=== PATIENT | female | born 1940 | race Caucasian/White ===

== ENCOUNTER 2018-05-10 22:12 | Inpatient (IN) | payer MEDICARE, BC ==
[~2018-05-10] VITALS: Ht 160 cm; Wt 59.9 kg
--- NOTE | 2018-05-10 22:25 | NUR ---
PT BIB BY [facility] FROM [facility] EMERGENCY ROOM ON 5150 HOLD FOR DTS. PATIENT IS HERE TO BE MEDICALLY CLEARED. NURSING PUBLIC RELATIONS ANALYST MADE AWARE FOR SITTER. SECURITY GAURD AT BEDSIDE FOR 1:1 SAFETY. SAFETY PRECAUTIONS IMPLEMENTED. ALL BELONGINGS AT NURSING STATION. WILL CONTINUE TO MONITOR CLOSELY.
[2018-05-10] MEDS ORDERED: TRAZ-182 PO (22:44)
[2018-05-10] MEDS ORDERED: MIRT45TA83 PO (22:44)
[2018-05-10] MEDS ORDERED: LEVO50TA8 PO (22:44)
[2018-05-10] MEDS ORDERED: GABA600T12 PO (22:44)
[2018-05-10] MEDS ORDERED: LORA0.5T PO (22:44)
[2018-05-10 23:13] LABS: BASOPHILS % (AUTO) 0.5 % (0.0-2.0); EOSINOPHILS # (AUTO) 0.1 K/uL (0.0-0.7); EOSINOPHILS % (AUTO) 1.6 % (0.0-7.0); HEMATOCRIT 38.1 % (31.2-41.9); HEMOGLOBIN 13.2 g/dL (10.9-14.3); LYMPHOCYTES # (AUTO) 2.2 K/uL (20.0-40.0); LYMPHOCYTES % (AUTO) 28.5 % (20.5-51.5); MEAN CORPUSCULAR HEMOGLOBIN 29.9 uug (24.7-32.8); MEAN CORPUSCULAR HGB CONC 35 g/dL (32.3-35.6); MEAN CORPUSCULAR VOLUME 86.3 fL (75.5-95.3); MONOCYTES # (AUTO) 0.7 K/uL (2.0-10.0); MONOCYTES % (AUTO) 9.7 % (0.0-11.0); NEUTROPHILS # (AUTO) 4.6 K/uL (1.8-8.9); NEUTROPHILS % (AUTO) 59.7 % (38.5-71.5); PLATELET COUNT (AUTO) 272 K/uL (179-408); RED BLOOD CELL COUNT(AUTO) 4.41 MIL/uL (3.63-4.92); WHITE BLOOD COUNT (AUTO) 7.6 K/uL (3.8-11.8)
[2018-05-10 23:29] LABS: THYROID STIMULATING HORMONE 1.775 mIU/mL (0.358-3.740)
[2018-05-10 23:31] LABS: ETHANOL < 3 MG/DL (0-0)
[2018-05-10 23:32] LABS: CARBON DIOXIDE 26 mmol/L (21-32); CHLORIDE 101 mmol/L (98-107); CREATININE 0.8 mg/dL (0.6-1.3); GLUCOSE 125 mg/dL (74-106); POTASSIUM 3.6 mmol/L (3.5-5.1); UREA NITROGEN, BLOOD 18 mg/dL (7-18)
[2018-05-10 23:39] LABS: ALANINE AMINOTRANSFERASE 22 U/L (14-59); ALKALINE PHOSPHATASE 86 U/L (50-136); ASPARTATE AMINOTRANSFERASE 12 U/L (15-37); BILIRUBIN,DIRECT 0.1 mg/dL (0.0-0.2); BILIRUBIN,TOTAL 0.2 mg/dL (0.2-1.0)
[2018-05-10 23:43] LABS: *BILIRUBIN,URIN NEGATIVE (NEGATIVE); *BLOOD, URINE NEGATIVE (NEGATIVE); *COLOR,URINE YELLOW (YELLOW); *KETONES,URINE TRACE (NEGATIVE); *UROBILINOGEN,URINE 0.2 E.U./dl (NORMAL); LEUKOCYTE ESTERASE ,URINE 2+ (NEGATIVE); NITRITE, URINE NEGATIVE (NEGATIVE); UGLUCOSE NEGATIVE (NEGATIVE)
[2018-05-10 23:46] LABS: *CLARITY,URINE HAZY (CLEAR)
[2018-05-10 23:50] LABS: ACETAMINOPHEN < 2.0 ug/mL (10-30)
[2018-05-10 23:55] LABS: BACTERIA,URINE FEW /HPF (NONE SEEN); SQUAMOUS EPITHELIAL CELL,UR MODERATE /HPF (NONE SEEN)
[2018-05-10 23:59] LABS: *AMPHETAMINE, URINE NEGATIVE (NEGATIVE); *BARBITURATE, URINE NEGATIVE (NEGATIVE); *CANNABINOID, URINE NEGATIVE (NEGATIVE); *COCCAINE, URINE NEGATIVE (NEGATIVE); *OPIATE, URINE NEGATIVE (NEGATIVE); *PHENCYCLIDINE SCREEN,URINE NEGATIVE (NEGATIVE)
[2018-05-11] MEDS ORDERED: CEphaleXIN 250 MG CAPSULE PO STA (00:02)
[2018-05-11] MEDS ORDERED: CEphaleXIN 250 MG CAPSULE ONE (00:03)
--- NOTE | 2018-05-11 00:06 | NUR ---
Pt. admitted to MHU , under care of Dr. Morris/Richard Allen DNP Belongs List completed
[2018-05-11 00:19] VITALS: BP 103/62
[2018-05-11] MEDS ORDERED: TEMAZEPAM 7.5 MG CAPSULE PO PRN (00:30)
[2018-05-11] MEDS ORDERED: MAG HYDROX/AL HYDROX/SIMETH 30 ML LIQUID UDC PO PRN (00:30)
[2018-05-11] MEDS ORDERED: MAGNESIUM HYDROXIDE 30 ML LIQUID UDC PO PRN (00:30)
--- NOTE | 2018-05-11 01:30 | NUR ---
AT APPROX 0015 ADMITTED 78 YEARS OLD FEMALE TO [facility] MHU ON A 5150 FOR DTS. ACCORDING TO HER HOLD, PATIENT LIVES WITH HER DAUGHTER. 3 DAYS AGO, SHE BROKE A GLASS AND USED THE SHARP EDGES AND ATTEMPTED TO KILL HERSELF BY CUTTING HER LEFT SIDE OF HER NECK LEAVING A SUPERFICIAL LACERATION. DAUGHTER CALLED 911, PATIENT WAS TAKEN TO [facility] ER WHERE SHE RECEIVED MEDICAL TREATMENT, WAS PUT ON HOLD AND WAS MEDICALLY CLEARED FOR ADMISSION TO A PSYCH UNIT. PATIENT WAS TRANSPORTED TO [facility] ER WHERE SHE WAS, ONCE AGAIN, MEDICALLY CLEARED FOR ADMISSION TO MHU.HOLD WILL END ON 05/11/18 AT 1245. FACE TO FACE ASSESSMENT WAS DONE. PATIENT NOTED A/O X 3 ABLE TO AMBULATE WITH STEADY GAIT WITH THE AID OF A FWW. SHE IS NOTED CALM AND COOPERATIVE UPON APPROACHED. V/S STABLE AT THIS TIME. DENIES PAIN. SHE IS NOTED WITH LOW MOOD, BLUNTED AFFECT. UPON INTERVIEW, SHE STATED THAT SHE FEELS SUICIDAL D/T CHRONIC GENERALIZED PAIN. SHE DESCRIBES HER PAIN A BURNING SENSATION THAT TRIGGERS HER ANXIETY AND THOUGHTS TO HARM SELF AND KILL HERSELF. PATIENT ADDED THAT SHE ONLY FEELS SUICIDAL WHEN HER PAIN GETS INTENSE. SHE ALSO REMEMBERED BEEN IN THIS HOSPITAL BACK IN 11/2010. PATIENT REMEMBERS ONE PRIOR ATTEMPT TO KILL SELF IN THE SAME WAY ABOUT ONE YEAR AGO, SHE STATED THAT SHE WENT TO [facility] AT THAT TIME. PATIENT IS ABLE TO CFS. HOWEVER, SHE STATED THAT IF THE PAIN GETS "REALLY BAD" THEN SHE WILL START HAVING THOUGHT TO KILL HERSELF. PATIENT WAS REASSURED FOR HER SAFETY. PATIENT WAS CHECKED FOR CONTRABAND. HEAD TO TOE SKIN ASSESSMENT WAS DONE, A SUPERFICIAL LACERATION OF APPROX 4CM WAS NOTED ON LEFT SIDE OF NECK. NO S/S OF INFECTION WAS NOTED AT THIS TIME. IT WAS ALSO NOTED THAT HER LEFT THUMB, 3/4 OF HER NAIL IS MISSING. PATIENT STATED THAT SHE "PICK AND BITE" THAT NAIL. A SHOWER WAS GIVEN WELL. PATIENT IS UNDER THE CARE OF DR BOLES AND MATT TREVIÑO NP. DR BOLES WAS NOTIFY OF ADMISSION. WILL CONTINUE TO MONITOR CLOSELY.
[2018-05-11 07:30] VITALS: BP 104/44
[2018-05-11] MEDS ORDERED: LEVOTHYROXINE SODIUM 50 MCG TABLET PO ONE (10:30)
[2018-05-11 16:00] VITALS: BP 121/63
--- NOTE | 2018-05-11 16:27 | NUR ---
GROUP NOTE: Patients were asked to attend group to draw pictures of their favorite animals and describe how that animal may represent who they are. S: "I can't sit down, so no thank you." O: Patient did not attend group A: Patient presented walking in the hallway with FWW when group began. Patient appeared pleasant, and declined to attend group. P: SW will continue to encourage group participation as scheduled.
[2018-05-11] MEDS: MIRTAZAPINE 15 MG TABLET PO SCH ×2 (16:48→18:00)
[2018-05-11] MEDS: TRAZODONE 100 MG TABLET PO SCH ×2 (16:48→18:00)
--- NOTE | 2018-05-11 18:18 | NUR ---
Trazodone 100 mg and Remeron 45 mg given early at 1648 as first dose order.
[2018-05-11] MEDS: LORAZEPAM 0.5 MG TABLET PO PRN (19:44)
--- NOTE | 2018-05-11 19:45 | NUR ---
RECEIVED PATIENT IN THE HALLWAY. SHE IS NOTED A/O X 3, SHE IS ABLE TO AMBULATE WITH STEADY GAIT WITH THE AID OF A FWW AND SHE IS ABLE TO MAKE HER NEEDS KNOWN. SHE IS NOTED WITH LOW/DEPRESSED AND ANXIOUS MOOD, BLUNTED AFFECT, LABILE BX. SHE CONTINUE PREOCCUPIED ABOUT HER "PAINS". SHE CONTINUE HAVING PASSIVE SI. SHE STATED TO THIS BAND TEACHER, "MY DAUGHTER DOES NOT WANT ME. SHE TOLD ME THAT SHE DOES NOT WANT TO HAVE ANYTHING TO DO WITH ME." PATIENT WAS REASSURED AND REDIRECTED. SHE WAS OFFERED AN ATIVAN FOR HER ANXIETY, SHE AGREED. ATIVAN 0.5M PO PRN WAS GIVEN. SHE WAS REASSURED FOR HER SAFETY. PT WAS ABLE TO CONTRACT FOR HER SAFETY. SHE WAS ENCOURAGE TO CONTINUE VERBALIZING FEELINGS AND EXPRESS THOUGHT AND FEELINGS TO PSYCH MD AND NURSING STAFF. WILL CONTINUE TO MONITOR CLOSELY.
[2018-05-11 20:00] VITALS: BP 136/64
--- NOTE | 2018-05-11 21:15 | NUR ---
PATIENT APPROACHED THE NURSING STATION. SHE STATED SHE WOULD LIKE TO GO TO SLEEP EARLY AND WOULD LIKE A "SLEEPING PILL". PATIENT WAS GIVEN TEMAZEPAM 7.5MG PO PRN FOR SLEEP AID. WILL CONTINUE TO MONITOR CLOSELY.
[2018-05-11] MEDS: CEphaleXIN 500 MG CAPSULE PO SCH (23:16)
[2018-05-12] MEDS: LEVOTHYROXINE SODIUM 50 MCG TABLET PO SCH (06:29)
[2018-05-12] MEDS: CEphaleXIN 500 MG CAPSULE PO SCH ×3 (06:29→21:00)
[2018-05-12 07:30] VITALS: BP 110/47
[2018-05-12] MEDS ORDERED: TEMAZEPAM 7.5 MG CAPSULE PO PRN (14:00)
--- NOTE | 2018-05-12 15:42 | NUR ---
Gps/Hand Sample Maker- Ambulating around with front wheel walker, safety reviewed emphasized, flat affect, encouraged verbalizations of her feelings and needs. Denies S.I., adequate fluid intake, denies burning in urination . Encouraged to attend group therapy.
[2018-05-12 16:00] VITALS: BP 122/53
--- NOTE | 2018-05-12 16:07 | NUR ---
Initial Discharge Instructions: Per patient, she resided in her daughter, Juliette home for one day before attempting suicide and being brought to [facility] [[place], [place]]. Per pt., she does not want to return there and would like to be placed in a board and care. IVIS Gaffney will speak with pt's daughter, Ruth ([phone]) to discuss discharge planning. IVIS Gaffney will also speak with pt's other daughter, Abby ([phone]). IVIS Gafnfey and other social workers will collaborate with DPOA and interdisciplinary team to ensure safe and proper discharge planning.
[2018-05-12] MEDS: TRAZODONE 100 MG TABLET PO SCH (16:23)
[2018-05-12] MEDS: MIRTAZAPINE 15 MG TABLET PO SCH (16:24)
--- NOTE | 2018-05-12 17:04 | NUR ---
Gps/Lisette- Jenna Bautista NURSING SPECIALIST in to see patient, informed patient had been asking for gabapentin 600 mg q pm, claimed patient had been off gabapentin/dc'd.
[2018-05-12 20:37] VITALS: BP 115/51
[2018-05-12] MEDS: TEMAZEPAM 15 MG CAPSULE PO PRN (21:03)
--- NOTE | 2018-05-12 22:30 | NUR ---
Received pt resting in bed. AAO x3. No acute distress noted. No c/o pain or discomfort. Denies S/I, hallucination, and delusion. All due meds given as ordered. Safety measures maintained. Will continue to monitor.
[2018-05-13] MEDS: LEVOTHYROXINE SODIUM 50 MCG TABLET PO SCH (06:16)
[2018-05-13] MEDS: CEphaleXIN 500 MG CAPSULE PO SCH ×3 (06:16→21:51)
[2018-05-13 07:30] VITALS: BP 94/44
--- NOTE | 2018-05-13 16:07 | NUR ---
Discharge Planning: IVIS Moses has not heard back from DPOA�s , Vijay Gomez [[phone]] (DPOA is out of the country, and patient�s other daughter asked IVIS moses to call DPOA daughter�s ). IVIS Moses left another voicemail for DPOA�s on 05/13/1028 in an attempt to have him fax over the DPOA paperwork as DPOA is currently out of the country. IVIS Moses will continue to get it contact with the DPOA�s .
--- NOTE | 2018-05-13 16:09 | NUR ---
Discharge Planning: IVIS Gaffney spoke with pt.�s daughter, Abby [[phone]] on 05/13/2018. Abby expressed that she felt she needed additional support to help her to better cope with the pt.�s mental health and wellness. IVIS Gaffney provided Abby with the information to the [facility] [place] [facility] [[address] [place] [address] ([phone]) which has a family support group. Abby stated that she feels she would benefit from the program and will reach out to them.
[2018-05-13 16:50] VITALS: BP 135/61
[2018-05-13] MEDS: TRAZODONE 100 MG TABLET PO SCH (16:53)
[2018-05-13] MEDS: MIRTAZAPINE 15 MG TABLET PO SCH (16:54)
[2018-05-13] MEDS: GABAPENTIN 300 MG CAPSULE PO SCH (18:49)
[2018-05-13 19:41] VITALS: BP 121/46
[2018-05-13] MEDS: LORAZEPAM 0.5 MG TABLET PO PRN (20:00)
[2018-05-13] MEDS: TEMAZEPAM 15 MG CAPSULE PO PRN (21:51)
[2018-05-14] MEDS: CEphaleXIN 500 MG CAPSULE PO SCH ×3 (06:23→21:02)
[2018-05-14] MEDS: LEVOTHYROXINE SODIUM 50 MCG TABLET PO SCH (06:23)
[2018-05-14 07:30] VITALS: BP 124/48
[2018-05-14] MEDS: GABAPENTIN 300 MG CAPSULE PO SCH ×2 (08:55→16:35)
[2018-05-14 16:06] VITALS: BP 131/43
[2018-05-14] MEDS: TRAZODONE 100 MG TABLET PO SCH (16:35)
[2018-05-14] MEDS: MIRTAZAPINE 15 MG TABLET PO SCH (16:35)
[2018-05-14 20:35] VITALS: BP 117/60
[2018-05-14] MEDS: TEMAZEPAM 15 MG CAPSULE PO PRN (21:02)
[2018-05-15] MEDS: CEphaleXIN 500 MG CAPSULE PO SCH ×3 (06:20→21:16)
[2018-05-15] MEDS: LEVOTHYROXINE SODIUM 50 MCG TABLET PO SCH (06:20)
[2018-05-15] MEDS: GABAPENTIN 300 MG CAPSULE PO SCH ×2 (08:04→16:06)
[2018-05-15 08:28] VITALS: BP 124/57
[2018-05-15] MEDS: MIRTAZAPINE 15 MG TABLET PO SCH (16:06)
[2018-05-15] MEDS: TRAZODONE 100 MG TABLET PO SCH (16:06)
[2018-05-15 17:25] VITALS: BP 134/66
--- NOTE | 2018-05-15 19:45 | NUR ---
RECEIVED PATIENT IN THE DAY ROOM WATCHING TV. SHE IS NOTED A/O X 3 ABLE TO AMBULATE WITH STEADY GAIT WITH THE AID OF A FWW. SHE IS NOTED WITH LOW MOOD, BLUNTED AFFECT, NEEDY, ATTENTION SEEKER. UPON INTERVIEW, SHE STATED, "I FEEL DEPRESSED, I FEEL MY HEAD IS BURNING". HOWEVER, SHE DENIES ANY THOUGHT OR PLAN TO HARM SELF AT THIS TIME. PATIENT WAS REASSURED, SAFETY WAS EMPHASIS. PATIENT ABLE TO CFS. WILL CONTINUE TO MONITOR.
[2018-05-15 20:00] VITALS: BP 116/41
[2018-05-15] MEDS ORDERED: CEphaleXIN 500 MG CAPSULE ONE (20:33)
[2018-05-15] MEDS: TEMAZEPAM 15 MG CAPSULE PO PRN (21:16)
[2018-05-16] MEDS: CEphaleXIN 500 MG CAPSULE PO SCH ×2 (06:03→13:53)
[2018-05-16] MEDS: LEVOTHYROXINE SODIUM 50 MCG TABLET PO SCH (06:03)
--- NOTE | 2018-05-16 06:52 | NUR ---
PATIENT SLEPT FOR APPROX 5.00 HRS THROUGH THE NIGHT. CONTINUE NEEDY, AND DEMANDING. WILL CONTINUE TO MONITOR.
[2018-05-16 08:30] VITALS: BP 122/53
[2018-05-16] MEDS: GABAPENTIN 300 MG CAPSULE PO SCH ×2 (08:44→16:35)
[2018-05-16 15:23] VITALS: BP 123/51
--- NOTE | 2018-05-16 15:30 | NUR ---
Discharge Planning Note: IVIS Quality Process Lead spoke with pt.�s daughter Abby . Abby expressed that pt.�s DPOA, Ruth is back in town and Abby will have Ruth contact IVIS Quality Process Lead. IVIS Quality Process Lead was able to reach Ruth and offered the option of having pt. go to a SNF while Abby and Ruth solidify an assisted living facility qualified to care for pt.�s specific needs. Ruth stated that she believes this is a good plan and is on board with this decision. Ruth stated that the pt. has adverse reactions to certain medication and is concerned about her current care. IVIS Gaffney informed attending psychiatrist Dr. Morris about Star concerns regarding patient�s medications, and asked him if he could call Ruth to further discuss her concerns.
[2018-05-16] MEDS: MIRTAZAPINE 15 MG TABLET PO SCH (16:34)
[2018-05-16] MEDS: ACETAMINOPHEN 325 MG TABLET PO PRN (16:35)
[2018-05-16] MEDS: TRAZODONE 100 MG TABLET PO SCH (16:35)
[2018-05-16 20:04] VITALS: BP 118/51
[2018-05-16] MEDS: TEMAZEPAM 15 MG CAPSULE PO PRN (21:17)
[2018-05-17] MEDS: LEVOTHYROXINE SODIUM 50 MCG TABLET PO SCH (06:13)
[2018-05-17] MEDS: ACETAMINOPHEN 325 MG TABLET PO PRN (08:47)
[2018-05-17] MEDS: GABAPENTIN 300 MG CAPSULE PO SCH ×2 (08:47→16:34)
--- NOTE | 2018-05-17 16:03 | NUR ---
DC Plannin: SW spoke with pt's daughter, Ruth ([phone]) to discuss discharge planning. Per Ruth, she and her sister, Abby would like to take the patient to [facility] ER, as patient is complaining of pain, and they would like her to be checked out at that hospital. IVIS told Ruth that a message would be left for the Bedspring Assembler, Kane Lay, CONSTRUCTION REP to contact them to discuss issues of pain management. Ruth was agreeable to this. 1300: Received call from pt's daughter, Abby ([phone]) who states she would like to take patient to [facility] ER. IVIS consulted with Dr. Morris about this, and Dr. Morris agreed to allow pt to be discharged to daughter's care if DPOA is agreeable tomorrow (05/18/18). 1315: SW placed call to Ruth, and informed her of this. Ruth was agreeable to pt discharging to Abby's care and reported she would call this magazine writer back with the time Abby was to roller picker the patient. 1450: Received call from Ruth stating that Abby is not comfortable picking up the patient. SW placed call to Abby, and she confirmed this. SW allowed opportunity for daughter to express concerns and ventilate feelings. SW informed Abby that plan is SNF placement for the patient, and daughter expressed that she was relieved. IVIS informed Dr. Morris that daughters will not be picking up the patient tomorrow and instead would like SW to find SNF placement for the patient. SW will continue to follow-up and begin sending referrals to SNFs.
[2018-05-17 16:23] VITALS: BP 142/85
[2018-05-17] MEDS: TRAZODONE 100 MG TABLET PO SCH (16:33)
[2018-05-17] MEDS: MIRTAZAPINE 15 MG TABLET PO SCH (16:34)
--- NOTE | 2018-05-17 19:50 | NUR ---
RECEIVED PATIENT IN HER ROOM IN BED. SHE IS NOTED AWAKE A/O X 3. SHE IS ABLE TO AMBULATE WITH STEADY GAIT. SHE CONTINUE NEEDY, ATTENTION SEEKER. LOW MOOD, WITHDRAWN, BLUNTED AFFECT. HOWEVER, SHE DENIES THOUGHTS TO HARM SELF, SHE STATED, "I DON'T WANT TO HARM MYSELF ANYMORE AND I DON'T HAVE ANY BURNING PAINS". PT DENIES SI/HI/VH/AV. SHE DENIES PAIN AT THIS TIME. SHE IS ABLE TO CONTRACT FOR HER SAFETY. V/S STABLE. PATIENT WAS REASSURED FOR HER SAFETY. BED AT LOWEST POSITION WITH WHEELS LOCKED, SIDE RAILS UP X 2, AND FREQUENT HEAD COUNTS. WILL CONTINUE TO MONITOR.
[2018-05-17 20:14] VITALS: BP 120/65
[2018-05-17] MEDS: TEMAZEPAM 15 MG CAPSULE PO PRN (21:04)
[2018-05-18] MEDS: LEVOTHYROXINE SODIUM 50 MCG TABLET PO SCH (06:49)
[2018-05-18] MEDS: GABAPENTIN 300 MG CAPSULE PO SCH ×2 (09:00→16:36)
[2018-05-18 10:00] VITALS: BP 115/47
[2018-05-18 16:00] VITALS: BP 122/57
[2018-05-18] MEDS: TRAZODONE 100 MG TABLET PO SCH (16:36)
[2018-05-18] MEDS: MIRTAZAPINE 15 MG TABLET PO SCH (16:37)
--- NOTE | 2018-05-18 17:04 | NUR ---
Process Group Note: Patients were asked to answer the question of "What is one thing you would change about yourself and why? Subjective: "..." Objective: Patient was asleep in bed and unable to be woken up to attend group. Assessment: Patient will need encouragement to attend group more often. Plan: Encourage group attendance as scheduled. structural layout worker will continue to ask patient to attend group.
[2018-05-18 20:00] VITALS: BP 92/59
[2018-05-18 21:23] VITALS: BP 111/62
[2018-05-18] MEDS: TEMAZEPAM 15 MG CAPSULE PO PRN (22:22)
[2018-05-19] MEDS: LORAZEPAM 0.5 MG TABLET PO PRN ×2 (00:15→23:09)
[2018-05-19] MEDS: LEVOTHYROXINE SODIUM 50 MCG TABLET PO SCH (06:50)
[2018-05-19 07:30] VITALS: BP 122/49
[2018-05-19] MEDS: GABAPENTIN 300 MG CAPSULE PO SCH ×2 (08:16→16:44)
--- NOTE | 2018-05-19 12:51 | NUR ---
Blasting Entry Specialist DC Planning: SW has faxed to the following facilities for SNF placement for the patient: [facility]: - Awaiting response [facility]: - July from the facility will come assess the [facility]: - Patient denied [facility]: - Awaiting response [facility]: - Awaiting response [facility]: - Awaiting response IVIS will continue to follow-up with the facilities on patient's acceptance.
[2018-05-19 16:00] VITALS: BP 108/54
[2018-05-19] MEDS: MIRTAZAPINE 15 MG TABLET PO SCH (16:11)
[2018-05-19] MEDS: TRAZODONE 100 MG TABLET PO SCH (16:11)
--- NOTE | 2018-05-19 18:18 | NUR ---
NURSING: RECEIVED PATIENT ON BED, ALERT ORIENTED, ON LOW BED POSITION, PATIENT COMPLIANT TO MEDICATION , DENIES SUICIDAL IDEATION AND HOMICIDAL IDEATION AT THIS TIME, SEEN HAVING GOOD CONVERSATION WITH ROOMMATES, PATIENTS BEEN AMBULATING WITH HER WALKER WITH NON SKID SOCKS IN THE HALLWAY, KEPT COMFORTABLE ALL NEEDS MET, DENIES ANY PAIN AND DISCOMFORT
--- NOTE | 2018-05-19 20:00 | NUR ---
RECEIVED PATIENT IN THE DAY ROOM WATCHING TV WITH ANOTHER PEER. SHE IS NOTED A/O X 3. CALM AND PLEASANT UPON APPROACHED. SHE IS NOTED LESS DEPRESSED LESS NEEDY. FAIR INSIGHT NOTED INTO THE REASON FOR HIS ADMISSION TO MHU. SHE DENIES SI OR ANY THOUGHT TO HARM SELF, DENIES PAIN OR DISCOMFORT AT THIS TIME. SHE IS ABLE TO CFS. LEFT SIDE NECK SUPERFICIAL LACERATIONS ASSESSMENT DONE AND PICTURE WAS TAKEN: NOTED HEALING WELL. NO S/S OF INFECTION NOTED, PATIENT DENIES PAIN. PATIENT WAS REASSURED FOR HER SAFETY. WILL CONTINUE TO MONITOR CLOSELY.
[2018-05-19] MEDS: TEMAZEPAM 15 MG CAPSULE PO PRN (21:09)
--- NOTE | 2018-05-19 21:10 | NUR ---
PATIENT REQUESTED A "SLEEPING PILL" STATING, "I CAN'T SLEEP. I AM AFRAID I WILL NOT BE ABLE TO SLEEP TONIGHT. NOTHING WORKS FOR ME." PATIENT SLEPT FOR APPROX 3.00HRS LAST NIGHT. TEMAZEPAM 15MG PO PRN WAS GIVEN FOR INSOMNIA. WILL CONTINUE TO MONITOR.
[2018-05-19 22:02] VITALS: BP 110/56
--- NOTE | 2018-05-19 23:05 | NUR ---
DURING PATIENT'S ROUNDS, SHE C/O NOT BEEN ABLE TO FALL ASLEEP. SHE WAS NOTED ANXIOUS. ATIVAN 0.5 MG PO PRN WAS GIVEN. WILL CONTINUE TO MONITOR CLOSELY.
--- NOTE | 2018-05-20 00:01 | NUR ---
RECEIVED PATIENT IN THE DAY ROOM WATCHING TV WITH ANOTHER PEER. SHE IS NOTED A/O X 3. CALM AND PLEASANT UPON APPROACHED. SHE IS NOTED LESS DEPRESSED LESS NEEDY. FAIR INSIGHT NOTED INTO THE REASON FOR HIS ADMISSION TO MHU. SHE DENIES SI OR ANY THOUGHT TO HARM SELF, DENIES PAIN OR DISCOMFORT AT THIS TIME. SHE IS ABLE TO CFS. LEFT SIDE NECK SUPERFICIAL LACERATIONS ASSESSMENT DONE AND PICTURE WAS TAKEN: NOTED HEALING WELL. NO S/S OF INFECTION NOTED, PATIENT DENIES PAIN. PATIENT WAS REASSURED FOR HER SAFETY. WILL CONTINUE TO MONITOR CLOSELY. Addendum: 05/20/18 at 0057 by PIERCE BOATENG RN DE
[2018-05-20] MEDS: LEVOTHYROXINE SODIUM 50 MCG TABLET PO SCH (07:00)
[2018-05-20 07:30] VITALS: BP 119/51
[2018-05-20] MEDS: GABAPENTIN 300 MG CAPSULE PO SCH ×3 (09:09→16:02)
--- NOTE | 2018-05-20 10:38 | NUR ---
Social Work Discharge Planning Note: Spoke with daughter, Abby [phone] at length yesterday regarding patient's discharge plan. Today speaking with Ruth [phone] and she confirms that pt. has been diagnosed with borderline personality disorder.They have shopped around with multiple pain therapists in [place] and elsewhere. She was in [facility] inpatient psychiatric unit in September 2016 and [facility] a few weeks ago. Patient is wanting to live with her daughters who cannot handle her. They are wanting [facility] inpatient for her. This clinician explained to Ruth that inpatient may not be the answer for her mother. She understands that there is no quick fix for patient. Per Ruth pt. is very dependent on her and many of her gestures are in anger. Patient acts out whenever her daughter (Ruth) sets limits on her. Pt. had ECT 8 years ago at [facility]. Pt. had ECT in [place] in February 2018 which was not effective per Ruth. Pt. "needs a good psychologist" per uRth. Ruth understands that patient is now engaging in cutting behavior as a coping behavior. Patient had a traumatic childhood in foster care and had a schizophrenic mother. Patient's sister has similar issues and does not do well on inpatient units. DPOA, Ruth [phone] they will agree to placement in an assisted living or board and care. Nicole has connected Ruth with Nathanael, placement agent. Advised Ruth that we need to support pt. with therapy in the community. Provided Ruth with Veronica Oneil PhD ) outpatient psychologist, Dr Enrrique Kearns [phone] Nunez [phone]-both psychiatrists specialize in this age group. Supported Ruth at length and explained that her mother needs to want to work with therapists in order to get well. Also advised her that her mother will be discharged from this unit in the near future. We will fax packet to [facility] inpatient unit per family request but Ruth is aware that it is unlikely. Plan: Ruth will call outpatient providers provided by this grant writer and will work with placement agent. Our social media manager will support agency referrals for placement. Ruth is aware she will have to leave our hospital as soon as placement is secured.
--- NOTE | 2018-05-20 13:16 | NUR ---
Discharge Planning: bilingual patient support caseworker received voicemail from Ruth Gomez [[phone]], patient daughter and DPOA, who requests that patient packet be sent to [facility] admissions department. Per Ruth, she spoke with [facility] who stated they have no beds but suggested to have hospital send packet to admissions department in case of bed opening. bilingual patient support caseworker called [facility] admissions [[phone]] and spoke with admissions staff who stated they are not accepting patient packets at this time, but that a face sheet can be sent. bilingual patient support caseworker faxed [[phone]] patient face sheet to admissions as patient daughter requested.
--- NOTE | 2018-05-20 15:49 | NUR ---
Discharge Planning: plastics worker called and spoke with volunteer coordinator, En [[phone]], at [facility] who stated that her colleague, Nathanael, is consulting with family on placement. Per En, Nathanael has referred family to too [facility]. Family to visit over the weekend. plastics worker called and left voicemail for Nathanael [[phone]] inquiring what other facilities family has been referred to. plastics worker awaiting return phone call. plastics worker then called [facility][[address] [place] [address]; ], a facility that patient daughter's would like patient to discharge to. plastics worker called and spoke with Tanya, operations coordinator, at [facility] who states she needs physician's report to be faxed. plastics worker faxed physicians report. plastics worker then received a voicemail from Tanya stating that patient is tentatively accepted pending [id number] assessment. Tanya states she can only do assessment on Wednesday of next week. plastics worker called back Tanya, but received no phone call and a voicemail was left. plastics worker to follow-up with Tanya at [place] on Wednesday.
[2018-05-20 16:00] VITALS: BP 112/62
[2018-05-20] MEDS: TRAZODONE 100 MG TABLET PO SCH (16:02)
[2018-05-20] MEDS: MIRTAZAPINE 15 MG TABLET PO SCH (16:02)
[2018-05-20] MEDS: TEMAZEPAM 15 MG CAPSULE PO PRN (21:03)
[2018-05-20 21:09] VITALS: BP 117/59
[2018-05-21] MEDS: LORAZEPAM 0.5 MG TABLET PO PRN ×2 (00:15→23:09)
[2018-05-21] MEDS: ACETAMINOPHEN 325 MG TABLET PO PRN (00:15)
[2018-05-21] MEDS: LEVOTHYROXINE SODIUM 50 MCG TABLET PO SCH (06:27)
[2018-05-21 07:30] VITALS: BP 115/90
[2018-05-21] MEDS: GABAPENTIN 300 MG CAPSULE PO SCH ×3 (09:13→16:46)
[2018-05-21 16:00] VITALS: BP 115/58
[2018-05-21] MEDS: TRAZODONE 100 MG TABLET PO SCH (16:45)
[2018-05-21] MEDS: MIRTAZAPINE 15 MG TABLET PO SCH (16:46)
[2018-05-21] MEDS: TEMAZEPAM 15 MG CAPSULE PO PRN (21:17)
[2018-05-21 21:47] VITALS: BP 122/61
[2018-05-22] MEDS: ACETAMINOPHEN 325 MG TABLET PO PRN ×2 (03:06→12:27)
[2018-05-22] MEDS: LEVOTHYROXINE SODIUM 50 MCG TABLET PO SCH (06:16)
[2018-05-22 07:30] VITALS: BP 118/61
[2018-05-22] MEDS: GABAPENTIN 300 MG CAPSULE PO SCH ×3 (09:26→17:43)
[2018-05-22 16:00] VITALS: BP 117/49
[2018-05-22] MEDS: MIRTAZAPINE 15 MG TABLET PO SCH (17:43)
[2018-05-22] MEDS: TRAZODONE 100 MG TABLET PO SCH (17:43)
[2018-05-22 20:00] VITALS: BP 118/56
[2018-05-22] MEDS ORDERED: CYCLOBENZAPRINE HCL 10 MG TABLET PO PRN (22:00)
[2018-05-22] MEDS: TEMAZEPAM 15 MG CAPSULE PO PRN (22:00)
[2018-05-23] MEDS: LORAZEPAM 0.5 MG TABLET PO PRN ×2 (04:20→22:33)
--- NOTE | 2018-05-23 04:23 | NUR ---
patient c/o anxiety. ativan 0.5 mg po given.
--- NOTE | 2018-05-23 05:23 | NUR ---
patient resting in bed comfortably. prn for anxiety effective.
[2018-05-23] MEDS: LEVOTHYROXINE SODIUM 50 MCG TABLET PO SCH (06:30)
--- NOTE | 2018-05-23 06:39 | NUR ---
gps: remain calm and cooperative with medications and care. slept 6:30 hrs through the night. resting in bed comfortably.no anxiety or aggressive behavior noted. denies si at this time.
[2018-05-23 07:30] VITALS: BP 118/53
[2018-05-23] MEDS: GABAPENTIN 300 MG CAPSULE PO SCH ×3 (08:56→16:34)
[2018-05-23] MEDS ORDERED: TUBERCULIN,PURIF.PROT.DERIV. 5 TU/0.1 ML TEST ID ONE (12:00)
[2018-05-23 15:37] VITALS: BP 122/53
[2018-05-23] MEDS: MIRTAZAPINE 15 MG TABLET PO SCH (16:34)
[2018-05-23] MEDS: TRAZODONE 100 MG TABLET PO SCH (16:34)
[2018-05-23 20:37] VITALS: BP 108/60
[2018-05-23] MEDS: TEMAZEPAM 15 MG CAPSULE PO PRN (21:05)
--- NOTE | 2018-05-23 22:35 | NUR ---
Patient c/o anxiety. ativan 0.5 mg po given for agitation.
--- NOTE | 2018-05-23 23:35 | NUR ---
GPS: PATIENT RESTING IN BED COMFORTABLY.PRN EFFECTIVE FOR AGITATION.
[2018-05-24] MEDS: LEVOTHYROXINE SODIUM 50 MCG TABLET PO SCH (06:06)
--- NOTE | 2018-05-24 06:41 | NUR ---
GPS: Remain calm and cooperative with medication and care. ativan 0.5 mg po give x1 and effective for agitation. slept 8:30 hrs through the night. denied si at this time.continue plan of care.
[2018-05-24 07:30] VITALS: BP 138/66
[2018-05-24] MEDS: GABAPENTIN 300 MG CAPSULE PO SCH ×3 (08:13→16:39)
--- NOTE | 2018-05-24 11:56 | NUR ---
Test Cell Technician DC Planning: Vy from [facility] [[address] [place] [address]; ] came to assess the patient today. Post-assessment with the patient, Ruth reported that Admissions (either Tanya or Ej) at the facility will be contacting this advertising copywriter about if the patient is admitted to their facility. SW will continue to follow-up.
--- NOTE | 2018-05-24 14:39 | NUR ---
Social Service Discharge Planning: Spoke to GERMÁN Miranda at 1440 re discharge plan. She will delegate discharge decisions to her sister, Abby [phone]. She focussed on mother's pain and stated that her " mother remains suicidal." Nursing notes reflect that patient is calm and cooperative. Ruth wants strong pain killers for her mother and " wants her sedated". This headline writer clarified that Dr Sin does not want to prescribe opiates for the patient. Educated family that patient needs to be receptive to treatment. Educated her re the patient's motivation as being crucial. Later spoke with Abby [phone] who is upset and angry with what her mother put her through. She responded well to support and was referred to [facility] and other support groups. Abby called administration earlier with a complaint that she was not being helped enough by social work msw. Nicole was present at administrative response from this headline writer. Nicole clarified that she had referred [place] placement agent to Abby. Abby was also referred to [facility] in [place]. Abby agreed to visit there today. Franklin reports that pt. says her burning pian si related to anxiety and has not wanted the Flexeril ordered at bedtime for pain. Daughters were educated that patient is behaving differently with mental health unit staff and daughters.On the unit she is denying suicidality and reports relief from burning with Ativan
[2018-05-24 16:03] VITALS: BP 116/62
[2018-05-24] MEDS: TRAZODONE 100 MG TABLET PO SCH (16:39)
[2018-05-24] MEDS: MIRTAZAPINE 15 MG TABLET PO SCH (16:39)
[2018-05-24] MEDS: TEMAZEPAM 15 MG CAPSULE PO PRN (20:57)
[2018-05-24 21:07] VITALS: BP 129/69
[2018-05-25] MEDS: LEVOTHYROXINE SODIUM 50 MCG TABLET PO SCH (07:19)
--- NOTE | 2018-05-25 07:30 | NUR ---
GPS/NSG PATIENT FIRST OBSERVED AWAKE AMB. WITH FWW. PATIENT ALERT ORIENTED TO NAME, TIME, PLACE AND SITUATION. PLEASANT ON APPROACH WITH FAIR APPEARANCE, BRIGHT AFFECT AND GOOD MOOD. PATIENT FIRST APPROACH NURSING STAFF TO REQUEST PRN FOR INSOMNIA, PRN ADMINISTERED ORDERED WITH EFFECTIVE OUTCOME. AT APPROX.0200 PATIENT REQUESTED PRN FOR ANXIETY. PT. PATIENT STATED SHE SUFFERED FROM INSOMNIA AND NEEDED THE ANXIETY PILL. STAFF ASKED IF THERE WAS SOMETHING ELSE THAT WOULD ADDRESS HER CURRENT NEED FOLLOWED BY EXAMPLES LIKE, ARE YOU IN PAIN? TO WHICH SHE RESPONDED "YES", PRN ADMINISTERED ORDERED, PATIENT STATED AN HOUR LATER, "SEE, IT DID NOT WORK, I'M STILL AWAKE". PATIENT ASSESSED ONE HOUR LATER, PATIENT ASLEEP. PATIENT CONTINUES TO REQUIRE OBSERVATION FOR SAFETY. LAST OBSERVED PATIENT IN ROOM LYING IN BED.
[2018-05-25 07:58] LABS: BASOPHILS % (AUTO) 0.5 % (0.0-2.0); EOSINOPHILS # (AUTO) 0.1 K/uL (0.0-0.7); EOSINOPHILS % (AUTO) 2.7 % (0.0-7.0); HEMATOCRIT 38.3 % (31.2-41.9); HEMOGLOBIN 13.2 g/dL (10.9-14.3); LYMPHOCYTES # (AUTO) 1.8 K/uL (20.0-40.0); LYMPHOCYTES % (AUTO) 37.5 % (20.5-51.5); MEAN CORPUSCULAR HEMOGLOBIN 28.8 uug (24.7-32.8); MEAN CORPUSCULAR HGB CONC 35 g/dL (32.3-35.6); MEAN CORPUSCULAR VOLUME 83.7 fL (75.5-95.3); MONOCYTES # (AUTO) 0.4 K/uL (2.0-10.0); MONOCYTES % (AUTO) 8.5 % (0.0-11.0); NEUTROPHILS # (AUTO) 2.4 K/uL (1.8-8.9); NEUTROPHILS % (AUTO) 50.8 % (38.5-71.5); PLATELET COUNT (AUTO) 271 K/uL (179-408); RED BLOOD CELL COUNT(AUTO) 4.58 MIL/uL (3.63-4.92); WHITE BLOOD COUNT (AUTO) 4.8 K/uL (3.8-11.8)
[2018-05-25 08:13] LABS: CARBON DIOXIDE 29 mmol/L (21-32); CHLORIDE 103 mmol/L (98-107); CREATININE 0.8 mg/dL (0.6-1.3); GLUCOSE 94 mg/dL (74-106); POTASSIUM 3.9 mmol/L (3.5-5.1); UREA NITROGEN, BLOOD 18 mg/dL (7-18)
[2018-05-25] MEDS: GABAPENTIN 300 MG CAPSULE PO SCH ×3 (08:22→17:01)
[2018-05-25 16:00] VITALS: BP 140/67
--- NOTE | 2018-05-25 16:30 | NUR ---
Nnp Discharge Planning: At 1330: IVIS met with potential placement option, [facility] [[address] [place] [address], ] representatives, Bina and Kristin. SW educated reps about patient's situation and confirmed information with them. Per Bina, they have been in contact with both of patient's daughters, Ruth (GERMÁN) and Abby (all contact info can be found in this instructional writer's previous notes). Bina and Kristin met with patient at bedside to assess for acceptance to their facility. SW was present during assessment, and pt reported chronic pain and did not verbalize any suicidal ideations to this placement. IVIS provided Bina with Physician's Report. Bina stated that she will call this instructional writer with a decision once she speaks with her medical administrator. At 1420, received call from Bina at [facility] ([phone]) confirming that they will be accepting the patient to their facility tomorrow (05/26/18). Bina asked that pt's prescriptions be faxed to [facility] so that they are available when the patient arrives to the facility. At 1430, IVIS called pt's daughter, Abby to inform her of [facility]'s decision. Abby expressed gratitude. Abby provided her pharmacy information, [facility] ([phone]). IVIS endorsed this information to account manager relief, Lisa. Per Abby, she is going to go to that facility tonight with many of pt's belongings and start getting patient moved in. IVIS then called pt's DPOA, Ruth to report the current placement options. IVIS assured daughter that the hospital will be arranging transportation for the patient with [employer] (approved by SS Director, Inga Ordonez). Ruth expressed gratitude. At 1500, IVIS placed call to [employer] ([phone]) to request a trip with them. Spoke with Manuela who confirmed a pick-up time for pt at 11am. Plan: IVIS will continue to follow-up to ensure safe discharge for patient.
[2018-05-25] MEDS: TRAZODONE 100 MG TABLET PO SCH (17:01)
[2018-05-25] MEDS: MIRTAZAPINE 15 MG TABLET PO SCH (17:01)
[2018-05-25 20:00] VITALS: BP 118/60
[2018-05-25] MEDS ORDERED: LORAZEPAM 0.5 MG TABLET PO PRN (20:15)
[2018-05-25] MEDS ORDERED: TEMAZEPAM 15 MG CAPSULE PO PRN (20:15)
[2018-05-26] MEDS: LEVOTHYROXINE SODIUM 50 MCG TABLET PO SCH (06:45)
[2018-05-26 07:30] VITALS: BP 128/67
[2018-05-26] MEDS: GABAPENTIN 300 MG CAPSULE PO SCH ×2 (08:10→13:10)
--- NOTE | 2018-05-26 10:54 | NUR ---
[employer] Discharge Planning: At 0800: IVIS received voicemail from patient's daughter/DPOA, Ruth ([phone]) stating that she and her sister, Abby ([phone]) have found a different B&C for the patient to be discharged to today (05/26/18). Per Ruth, the B&C is called [facility] [[address], [place] [address]]. Ruth reported that she spoke to the Corporate Controller there, Mo. Per Ruth, the health information administrator will be coming to assess the patient at 11 am. At 0830: IVIS placed call to Bina at [facility] ([phone]) (confirmed facility from yesterday) to discuss discharge plan. Per Bina, the family has declined to move into their facility. IVIS inquired with Bina if the patient is denied at [facility], if they will take the patient today. Per Bina, they will not take the patient today because they "don't want to force someone to come to their facility." At 0930: IVIS placed call to pt's daughter, Ruth relaying information provided by [facility], [place]. Ruth verbalized understanding. IVIS educated daughter that if patient is denied at [facility], then patient will be discharging to a SNF today. Ruth verbalized understanding and gave consent for patient to be discharged to [facility] [Address: [address] [place] [id number]; ]. IVIS will continue to follow-up to ensure safe discharge plan for the patient.
--- NOTE | 2018-05-26 11:34 | NUR ---
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
--- NOTE | 2018-05-26 13:12 | NUR ---
DC Note: Patient will be discharged to [facility] [[address] [place] [id number]; [phone]] via private transportation at 2pm. Spoke with Jose Elias at the facility ([phone]) who states he is ready to accept the patient today. Patient will be transported via [facility]. Spoke with Manuela at [facility] ([phone]) who confirmed the pick-up time. Patient�s daughters, Ruth ([phone]) and Abby ([phone]) are both aware. Patient is aware and agreeable with her discharge plan. Patient will follow-up with her Primary Care Physician, Dr. Coleen Harper [[address] [place] [address], [place] [address]; [phone]]. Patient will also follow-up with Psychiatrist, Dr. Ish Nunez while at the facility [Address: [address] [place] [address] [address], [place] [address]; ]. Patient has also been provided with referrals to Dr. Veronica Oneil (Psychologist) ([phone]) for outpatient therapy. Family has also been referred to Dr. Enrrique Kearns ([phone]) (Psychiatrist). Patient was encouraged to present to [facility] (Behavioral [facility]) [[address] [place] [id number]; [phone]] within the next 7 days to ensure Psychiatry outpatient care as well. Patient was provided with outpatient mental health resources to [facility] , [facility] , and the National Suicide Prevention Lifeline .
--- NOTE | 2018-05-26 14:00 | NUR ---
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
== END 2018-05-26 14:00 | DRG 885 ==
LOC: ER 22:12 → GPS 23:55
PROVIDERS: ADMIT Psychiatry & Neurology Psychiatry; ATTEND Registered Nurse
PROC: 0HBRXZZ Excision of Toe Nail, External Approach (ICD-10-PCS; principal; 2018-05-17)
DX: F33.2 Major depressive disorder, recurrent severe without psychotic features (principal); G92 Toxic encephalopathy; N39.0 Urinary tract infection, site not specified; E03.9 Hypothyroidism, unspecified; S11.91XD Laceration without foreign body of unspecified part of neck, subsequent encounter; X78.8XXD Intentional self-harm by other sharp object, subsequent encounter; I73.9 Peripheral vascular disease, unspecified; B35.1 Tinea unguium; L84 Corns and callosities; R26.2 Difficulty in walking, not elsewhere classified; M79.7 Fibromyalgia; Z81.8 Family history of other mental and behavioral disorders; F41.9 Anxiety disorder, unspecified; K58.9 Irritable bowel syndrome, unspecified; Z91.5 Personal history of self-harm; Z79.890 Hormone replacement therapy; Z79.899 Other long term (current) drug therapy; G89.29 Other chronic pain; I45.81 Long QT syndrome; B96.20 Unspecified Escherichia coli [E. coli] as the cause of diseases classified elsewhere; F11.21 Opioid dependence, in remission; R20.8 Other disturbances of skin sensation
CPT/HCPCS: 36415; 70030-TC; 71045; 80307; 83735; 84100; 84443; 85025; 85730; 86580; 87077; 87086; 93005; A4663; G0480; G0480-TC